=== PATIENT | female | born 1975 | race Caucasian/White ===

== ENCOUNTER 2017-02-16 11:13 | Outpatient (CLI) | payer BC | END 2017-02-16 11:14 | disposition home or self-care (01) | LOC: BICRAD 11:13 | PROVIDERS: ATTEND Family Medicine | DX: J40 Bronchitis, not specified as acute or chronic (principal); R07.9 Chest pain, unspecified | CPT/HCPCS: 71020 ==

== ENCOUNTER 2017-12-28 11:11 | Outpatient (CLI) | payer BC ==
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
== END 2017-12-28 11:12 | disposition home or self-care (01) ==
LOC: BICRAD 11:11
PROVIDERS: ATTEND Family Medicine
DX: S20.219A Contusion of unspecified front wall of thorax, initial encounter (principal); Y09 Assault by unspecified means

== ENCOUNTER 2019-03-04 09:42 | Outpatient (CLI) | payer BC ==
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
== END 2019-03-04 09:43 | disposition home or self-care (01) ==
LOC: BICMRI 09:42
PROVIDERS: ATTEND Specialist
DX: M47.22 Other spondylosis with radiculopathy, cervical region (principal); M48.02 Spinal stenosis, cervical region
CPT/HCPCS: 72141

== ENCOUNTER 2019-09-03 12:39 | Emergency (ER) | payer BC ==
[2019-09-03] MEDS ORDERED: Ketorolac Tromethamine 30 MG/ML VIAL ONE (13:07)
[2019-09-03] MEDS ORDERED: Acetaminophen 500 MG TAB ONE (13:07)
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
[2019-09-03] MEDS ORDERED: traMADol HCl 50 MG TAB ONE (14:12)
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
== END 2019-09-03 14:47 | disposition home or self-care (01) ==
LOC: ERS 12:39
DX: M25.552 Pain in left hip (principal); M25.562 Pain in left knee; I10 Essential (primary) hypertension; K21.9 Gastro-esophageal reflux disease without esophagitis; J45.909 Unspecified asthma, uncomplicated; F17.200 Nicotine dependence, unspecified, uncomplicated; F32.9 Major depressive disorder, single episode, unspecified; Z79.899 Other long term (current) drug therapy; V49.9XXA Car occupant (driver) (passenger) injured in unspecified traffic accident, initial encounter
CPT/HCPCS: 71045; 72125; 93005; 96361; 96374; J1885

== ENCOUNTER 2020-07-13 07:16 | Outpatient (CLI) | payer BC, MEDICAID ==
[2020-07-13] MEDS ORDERED: Iopamidol-370 76% 500 ML 1 ML ONE (11:46)
== END 2020-07-13 07:17 | disposition home or self-care (01) ==
LOC: BICCT 07:16
PROVIDERS: ATTEND Nurse Practitioner Family
DX: M94.0 Chondrocostal junction syndrome [Tietze] (principal); K76.9 Liver disease, unspecified; K76.0 Fatty (change of) liver, not elsewhere classified
CPT/HCPCS: 71260; Q9967